=== PATIENT | female | born 1950 | race Caucasian/White ===

== ENCOUNTER 2017-01-14 13:31 | Emergency (ER) | payer MEDICARE, OTHER ==
[2017-01-14] MEDS ORDERED: FENTANYL 250 MCG/5 ML VIAL ONE (13:52)
--- NOTE | 2017-01-14 14:07 | RADIOLOGY REPORT ---
HISTORY: Fall with pain and limited range of motion. COMPARISON: None. FINDINGS: 2 views of the left shoulder obtained. The humeral head appears to be anteroinferiorly dislocated in relation to the glenoid. Further charac terization is limited on the current study. IMPRESSION: 1. Positive dislocation Final Electronic Signature: This report was electronically signed by Marshall Justin MD on 01/14/2017 2:04 PM. [email or web address] /
[2017-01-14] MEDS ORDERED: FENTANYL 100 MCG/2 ML VIAL ONE (14:41)
[2017-01-14] MEDS ORDERED: LIDOCAINE HCL 1% 20 ML VIAL ONE (14:42)
[2017-01-14] MEDS ORDERED: HYDROcodone/APAP PREPAC 5/325 1 TAB TABLET PO ONE (15:23)
--- NOTE | 2017-01-14 15:26 | RADIOLOGY REPORT ---
HISTORY: Status post reduction. COMPARISON: Two-view left shoulder obtained earlier on the same date. FINDINGS: 2 views of the shoulder obtained. Interval reduction of glenohumeral dislocation. Mildly comminuted and displaced greater tuberosity fracture identified. No definite evidence for glenoid fracture. Unde rlying degenerative change glenohumeral and acromioclavicular joints. Type II acromium. IMPRESSION: Status post reduction. Final Electronic Signature: This report was electronically signed by Viktor Mendoza MD, FACR on 01/14/2017 3:24 PM. yo /
--- NOTE | 2017-01-14 15:41 | ER PHYSICIAN DOCUMENTATION ---
Physician Documentation [facility] Name:Annalee Sweet Age:66 yrs Sex:Female :1950 Arrival Date:01/14/2017 Time:13:31 Bed6 Private MD:Kurt Obrien ED, John Disposition: 01/14/17 15:05 Discharged to Home/Self Care. Impression: Dislocation of Shoulder. - Condition is Good. - Discharge Instructions: DISLOCATED SHOULDER. - Prescriptions for Hydrocodone- Acetaminophen 5-325 mg Oral Tablet - take 1 tablet by ORAL route every 6 hours As needed; 20 tablet. - Medical Reconciliation form form. - Follow up: Jayson Rees DO, Michael Grant, MD; When: 4- 6 days; Reason: Continuance of care. - Problem is new. - Symptoms have improved. HPI: 01/14 14:00 This 66 yrs old Female presents to ER via EMS with complaints of Shoulder jm Pain - LEFT. 14:00 The patient or guardian complains of an injury. left shoulder. Context: resulted from a jm fall, The patient experiences decreased range of motion, The patient notes a deformity. Onset: The symptom(s)/episode began/occurred just prior to arrival. Associated signs and symptoms: Pertinent negatives: neck pain. Historical: - Allergies: SULFA (SULFONAMIDES); - Home Meds: 1. Vitamin E Oral - PMHx: Vumw-pjurlw-vmjuujqod-icthius-vulgaris; - PSHx: Right carpal tunnel; - Tetanus: < 10 years. - Ebola Screening: : Patient negative for fever greater than or equal to 101.5 degrees Fahrenheit, and additional compatible Ebola Virus Disease symptoms. Patient denies exposure to infectious person. Patient denies travel to an Ebola-affected area in the 21 days before illness onset. No symptoms or risks identified at this time. . - Immunization history: Flu Vaccine >1 year. - Social history: Smoking status: Patient states was never smoker of tobacco. ROS: 14:00 Constitutional: Negative for fatigue, fever. jm 14:00 Neck: Negative for injury or acute deformity. 14:00 MS/extremity: Positive for injury or acute deformity, decreased range of motion, deformity. 14:00 Skin: Negative for abscesses, avulsion. 14:00 Neuro: Negative for numbness, weakness. Exam: 14:00 Constitutional: The patient appears alert, awake, comfortable, obese. 14:00 ENT: Voice: is normal. 14:00 Neck: C-spine: appears grossly normal, ROM/movement: is normal. 14:00 Cardiovascular: Rate: normal, Rhythm: regular. 14:00 Respiratory: Respirations: normal, Breath sounds: are normal. 14:00 Musculoskeletal/extremity: ROM: limited active range of motion due to pain, limited passive range of motion due to pain, in the left shoulder, Pulses: are normal with no appreciated deficits. 14:00 Neuro: Sensation: is normal. Vital Signs: 14:00 BP 122 / 75; Pulse 68; Resp 96; Temp 98.2(TE); Pulse Ox 90% ; Weight 81.65 kg (R); tg Height 5 ft. 5 in. (165.10 cm) (R); Pain 2/10; 14:51 BP 166 / 82; Pulse 70; Resp 17; Pulse Ox 98% on 4 lpm NC; Pain 1/10; tg 15:13 BP 169 / 66; Pulse 62; Resp 16; Pulse Ox 98% on R/A; Pain 0/10; tg 14:00 Body Mass Index 29.95 (81.65 kg, 165.10 cm) tg Procedures: 14:00 Reduction: of the left shoulder, using traction, Immobilized with sling, Patient gail tolerated well. Post reduction film - reveals improved alignment. MDM: 13:33 Patient medically screened. 14:00 Differential diagnosis: Anterior dislocation with fracture, Anterior dislocation jm without fracture. Data reviewed: vital signs, nurses notes, radiologic studies, and as a result, I will discharge patient. Test interpretation: by ED physician or midlevel provider: plain radiologic studies. Counseling: I had a detailed discussion with the patient and/or guardian regarding: the historical points, exam findings, and any diagnostic results supporting the discharge/admit diagnosis, radiology results, the need for outpatient follow up, a orthopedic surgeon. Medication response: The patient's symptoms have improved. ED course: AMBROCIO Anette came to sedate pt w propofol and I reduced shoulder w/o issue. There is a HS fx noted to the shoulder. PT can f/u w ortho next week. . 01/14 14:09 Order name: SHOULDER; 2V+ [place] [id number] EDMS 01/14 15:28 Order name: SHOULDER; 2V+ [place] [id number] EDMS Dispensed Medications: 15:37 Drug: HYDROcodone-acetaminophen (5mg/325 mg) 1-2 tabs 6 tabs; Route: PO; tg 15:38 Follow up: Response: Dispensed at discharge. tg Signatures: Andrea Varner RN RN tg Fracisco Crocker MD MD jm
--- NOTE | 2017-01-14 15:41 | ER NURSING DOCUMENTATION ---
Nurse's Notes [facility] Name:Annalee Sweet Age:66 yrs Sex:Female :1950 Arrival Date:01/14/2017 Time:13:31 Bed6 Private MD:Kurt Obrien Diagnosis:Dislocation of Shoulder Presentation: 01/14 13:34 Acuity: MARQUIS 2 tg 15:39 Presenting complaint: Patient states: [place] [employer] [place]. Tripped, landed on tg knees (bruised but full ROM), then left shoulder. Unable to move left arm due to shoulder pain. Transition of care: patient was not received from another setting of care. 15:39 Method Of Arrival: EMS: 410 tg Triage Assessment: 14:39 General: Appears uncomfortable, Behavior is cooperative. Pain: Complains of pain in tg anterior aspect of left shoulder and posterior aspect of left shoulder Aggravated by repositioning. Neuro: Level of Consciousness is awake, alert. Cardiovascular: Capillary refill < 3 seconds. Respiratory: Respiratory effort is even, unlabored. Derm: Skin is pink, warm & dry. Musculoskeletal: Range of motion limited in left shoulder. Historical: - Allergies: SULFA (SULFONAMIDES); - Home Meds: 1. Vitamin E Oral - PMHx: Bsot-qheqhe-vnuevsytw-icthius-vulgaris; - PSHx: Right carpal tunnel; - Tetanus: < 10 years. - Ebola Screening: : Patient negative for fever greater than or equal to 101.5 degrees Fahrenheit, and additional compatible Ebola Virus Disease symptoms. Patient denies exposure to infectious person. Patient denies travel to an Ebola-affected area in the 21 days before illness onset. No symptoms or risks identified at this time. . - Immunization history: Flu Vaccine >1 year. - Social history: Smoking status: Patient states was never smoker of tobacco. Screenin:42 Infectious Disease Risk Unable to Obtain. Abuse screen: Denies threats or abuse. Denies tg injuries from another. Nutritional screening: No deficits noted. Vital Signs: 14:00 BP 122 / 75; Pulse 68; Resp 96; Temp 98.2(TE); Pulse Ox 90% ; Weight 81.65 kg (R); tg Height 5 ft. 5 in. (165.10 cm) (R); Pain 2/10; 14:51 BP 166 / 82; Pulse 70; Resp 17; Pulse Ox 98% on 4 lpm NC; Pain 1/10; tg 15:13 BP 169 / 66; Pulse 62; Resp 16; Pulse Ox 98% on R/A; Pain 0/10; tg 14:00 Body Mass Index 29.95 (81.65 kg, 165.10 cm) tg ED Course: 13:32 Patient arrived in ED. ama 13:33 Kurt Obrien MD is Private Physician. ama 13:33 Fracisco Crocker MD is Attending Physician. jm 13:34 Triage completed. tg 14:00 Port Xray Completed. daphnie 14:29 Andrea Varner, VERONICA is Primary Nurse. tg 14:32 Inserted peripheral IV: 24 gauge in right hand Missed attempts: 22 gauge X 1 Bleeding tg controlled, band aid applied, catheter tip intact. 14:41 Arm band placed on. tg 15:05 Jayson Rees DO, Jose Angel Moody MD is Referral Physician. jm 15:11 Port Xray Completed. daphnie 15:38 Shoulder immobilizer applied on left shoulder. tg 15:39 Valuables Remains with patient. tg M. 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 Pulse ox on. Oxygen via nasal cannula @ 4L/min. 14:51 Intra-procedure: Sedation began at 14:51. Provider left patient's bedside at 14:55. tg Intra-procedure Time: 1-15 minutes Patient response: remains sedated, resps even/unlabored, IV patent. Post-procedure: Procedure ended at 15:00. Sedation Score Active motion (2 points) Able to cough/deep breath (2 points) Fully awake (2 points) Riggins/normal (2 points). Administered Medications: 15:37 Drug: HYDROcodone-acetaminophen (5mg/325 mg) 1-2 tabs 6 tabs; Route: PO; tg 15:38 Follow up: Response: Dispensed at discharge. tg Outcome: 15:05 Discharge ordered by . gail 15:38 Discharged to home ambulatory, with friend. tg 15:38 Condition: stable 15:38 Discharge Assessment: Patient awake, alert and oriented x 3. No cognitive and/or functional deficits noted. Patient verbalized understanding of disposition instructions. Patient awake and alert. 15:38 Instructed on discharge instructions. 15:38 IV D/Kenny 15:40 Patient left the ED. tg Signatures: Andrea Varner RN RN tg Fracisco Crocker MD MD jm Abbott, Aaron Zarco, Reg Reg ama
== END 2017-01-14 15:40 | disposition home or self-care (01) ==
LOC: ER 13:31
DX: S43.006A Unspecified dislocation of unspecified shoulder joint, initial encounter (principal); S80.01XA Contusion of right knee, initial encounter; S80.02XA Contusion of left knee, initial encounter; W01.0XXA Fall on same level from slipping, tripping and stumbling without subsequent striking against object, initial encounter; Y92.481 Parking lot as the place of occurrence of the external cause; Y93.01 Activity, walking, marching and hiking; Z74.3 Need for continuous supervision
CPT/HCPCS: 23650; 99284; 99285; A0425; A0427